=== PATIENT | male | born 1980 | race Caucasian/White ===

== ENCOUNTER 2016-04-29 18:00 | Emergency (ER) | payer OTHER ==
[~2016-04-29] VITALS: Ht 180.3 cm; Wt 93.9 kg
[~2016-04-29 18:00] MED LIST: ALBUAER19 INH; AMT10 PO; GABA600T PO; PRLSR20 PO; SUMA100T16 PO
[2016-04-29 18:05] VITALS: TEMP 37; Ht 180.3 cm; Wt 93.9 kg
[2016-04-29] MEDS ORDERED: PROPARACAINE HCL 0.5% OP SOLN 15 ML BTL OP STA (18:38)
[2016-04-29] MEDS ORDERED: OXYCODONE/ACETAMINOPHEN 5-325 TAB PO STA (19:13)
[2016-04-29] MEDS ORDERED: OXYCODONE IR HOME PACK PO ONE (21:30)
[2016-04-29] MEDS ORDERED: BACITRACIN OP OINT 3.5 GM TUBE OP ONE (21:30)
[2016-04-29 21:36] VITALS: BP 148/91; PULSE 80; O2SAT 99
--- NOTE | 2016-04-29 23:07 | EMERGENCY ROOM VISIT NOTE ---
History First contact with patient: 18:38 Chief Complaint: EYE ASSESSMENT Stated Complaint: SPRAYED IN EYES W/AIR CONDITION COOLANT History of Present Illness The patient is a 35 year old male who presents to the Emergency Room with complaints of pain in his bilateral eyes. The patient was working on a car, and was trying to dismantle the air conditioning unit. He states the coolant from the air-conditioning sprayed into his face and eyes. He was not wearing protection at the time. He believes his tetanus is up-to-date. The patient does have blurry vision, and did immediately wash his face and eyes after the injury. This occurred about one hour ago. The patient did not inhale the coolant and does not have complaints of his nose, mouth, or skin of his face. He does not have other injuries. He does not wear contact lenses or glasses. He rates his discomfort a 7/10. Review of Systems More than 10 systems were reviewed and otherwise negative with the exception of history of present illness. Past Medical/Surgical History Medical Problems: (1) Lumbar stenosis Family History No pertinent family history Social History Smoking Status: Current Every Day Smoker Alcohol Use: none Housing Status: lives with family Current/Historical Medications Scheduled Amitriptyline HCl (Amitriptyline HCl), 10 MG PO HS Gabapentin (Neurontin), 600 MG PO QID Omeprazole (Prilosec), 20 MG PO HS Sumatriptan Succinate (Imitrex), 100 MG PO UD Scheduled PRN Albuterol Inhaler (Ventolin Inhaler), 2 PUFFS INH Q4H PRN for Asthma Symptoms Allergies Coded Allergies: No Known Allergies (Unverified , 04/29/16) Physical Exam Vital Signs Date Time Temp Pulse Resp B/P Pulse Ox O2 Delivery O2 Flow Rate FiO2 04/29/16 21:36 80 18 148/91 99 04/29/16 18:05 37.0 82 16 159/101 98 Room Air Right Eye Acuity: 20/200 Left Eye Acuity: 20/200 Pain Rating (0-10): 3.0 Physical Exam VITALS: Vitals are noted on the nurse's note and reviewed by myself. Vital signs stable. Visual acuity as above GENERAL: Well-developed, well-nourished, white male, who is in no acute distress and resting comfortably. Patient is cooperative with the examination. HEAD: Normocephalic atraumatic. EARS: External ear normal. External auditory canals clear, tympanic membranes pearly stanley without erythema or effusion bilaterally. EYES: Pupils equal round and reactive to light and accommodation. Conjunctivae without injection, sclerae without icterus. Extraocular movements intact. Slit lamp exam does not reveal significant foreign body or hyphema. Normal ocular pressures by tonometry. Alcaine drops were placed in the bilateral eyes. Flourescein examination shows haziness over the bilateral eyes consistent with chemical exposure. There are no deep or penetrating injuries noted. The upper and lower aspects of the globe are unaffected, as presumably these areas were protected by the eyelids in the accident. There are several pinpoint areas of increased uptake at 8:00 in the right eye and 3:00 in the left eye. No significant injection noted. NOSE: Patent, turbinates without inflammation or discharge. MOUTH: Mucous membranes moist. Tonsils are not enlarged. Pharynx without erythema, blood, or exudate. Uvula midline. Airway patent. NECK: Supple without nuchal rigidity. No lymphadenopathy. No thyromegaly. Cervical spine is nontender. HEART: Regular rate and rhythm without murmurs gallops or rubs. LUNGS: Clear to auscultation bilaterally without wheezes, rales or rhonchi. No retractions or accessory muscle use. Medical Decision & Procedures Medications Administered Medications (Trade) Dose Ordered Sig/Ti Route Start Time Stop Time Status Last Admin Dose Admin Proparacaine HCl (Alcaine 0.5% Oph Soln) 2 drops NOW STAT OP 04/29/16 18:38 04/29/16 18:39 DC 04/29/16 18:38 2 DROPS Oxycodone/ Acetaminophen (Percocet 5-325mg Tab) 1 tab NOW STAT PO 04/29/16 19:13 04/29/16 19:15 DC 04/29/16 19:21 1 TAB Oxycodone HCl (Roxicodone Immediate Rel 5MG Home Pack) 1 homepack UD ONCE PO 04/29/16 21:30 04/29/16 21:31 DC 04/29/16 21:30 1 HOMEPACK Bacitracin (Bacitracin Oph Oint) 1 appln NOW ONCE OP 04/29/16 21:30 04/29/16 21:31 DC 04/29/16 21:30 1 APPLN ED Course Physical exam and history were performed. Nursing notes and EMR were reviewed. Patient appears to have suffered a chemical exposure to his bilateral eyes. His vision is 20/200 bilateral, and sustained exam does show haziness over the front of the corneas. I discussed the case with poison control of [place], and recommendation was for irrigation and standard eye care. The patient was given oral Percocet here in the department. Alcaine drops were placed again, and a Juan lens irrigation system was initiated. The eyes were irrigated with 1 L normal saline each. On reevaluation the patient did have notable improvement of his pain. He continues to have some blurry vision, which appears as expected. The patient will need to follow with ophthalmology in the next 12-36 hours for recheck. I will give him a short course of pain medication as well as bacitracin ophthalmic ointment to use. The patient was thoroughly invited back to the ER with any new, worsening, or concerning symptoms. He voiced understanding of this plan and rated his discomfort a 3/10 at the time of departure. He was discharged home under the care of his who is acting as the pharmacy delivery driver today. The chart was completed utilizing [employer] Speech Voice Recognition Software. Grammatical errors, random word insertions, pronoun errors, and incomplete sentences are an occasional consequence of this system due to software limitations, ambient noise, and hardware issues. Any formal questions or concerns about the content, text, or information contained within the body of this dictation should be directly addressed to the provider for clarification. . Medical Decision Differential diagnosis includes, but is not limited to: Laceration, abrasion, chemical burn, penetrating injury, glaucoma, and others Impression Primary Impression: Chemical exposure of eye Departure Information Dispostion Home / Self-Care Condition GOOD Referrals Jag Bermudez M.D. Forms HOME CARE DOCUMENTATION FORM, IMPORTANT VISIT INFORMATION Patient Instructions [facility] Additional Instructions You were seen and evaluated today on an emergency basis only. This is not a substitute for, or an effort to provide, complete comprehensive medical care. It is not possible to recognize and treat all injuries or illnesses in a single emergency department visit. For this reason it is recommended that you followup with Ophthalmology, Dr. Bermudez's office, in the next 12-36 hours for a recheck of your condition. Call the office in the morning and let them know you're seen in the ER to help make her appointment. Apply a bacitracin ophthalmic ointment, 1 ribbon to the lower eyelid 2-3 times daily. This is also best used at nighttime. Oxycodone (OxyIR) 5mg (homepack): Take ONE pill every SIX hours for breakthrough pain. Avoid alcohol, operating machinery or dangerous equipment, working on ladders or roofs, DRIVING, or situations where being under the influence may be dangerous. It is recommended to use an [id number] stool softener such as Colace, 100mg twice daily while taking this medication to avoid constipation. For baseline pain relief you may alternate ibuprofen and acetaminophen every 4 hours for pain control. Take 600 mg ibuprofen (Advil) and then 4 hours later take 1000 mg acetaminophen (Tylenol). Do not take more than 3000 mg acetaminophen in a single day. You are welcome to return to the emergency department anytime with new, worsening, or concerning symptoms.
== END 2016-04-29 21:36 | disposition home or self-care (01) ==
LOC: C.EDB 18:02 → C.EDD 21:36
DX: Z77.098 Contact with and (suspected) exposure to other hazardous, chiefly nonmedicinal, chemicals (principal); M48.06 Spinal stenosis, lumbar region; F17.200 Nicotine dependence, unspecified, uncomplicated; Z79.899 Other long term (current) drug therapy